=== PATIENT | female | born 1945 | race Caucasian/White ===

== ENCOUNTER → 2017-09-02 12:31 | Outpatient (CLI) | payer MEDICARE, OTHER, SELFPAY ==
--- NOTE | 2017-09-02 12:33 | BD_ITS ---
STUDY: DUAL ENERGY X-RAY ABSORPTIOMETRY / DXA REASON FOR EXAM: Female, 71 years old. The patient is postmenopausal. Loss of height. TECHNIQUE: Bone Mineral Density (BMD) measurements of lumbar spine and bilateral hips were obtained. COMPARISON: None. FINDINGS: Lumbar Spine (L1-L4): g/cm2 (0.967) / T-score (-1.8) / Z-score (-0.1) Findings are suggestive of osteopenia with a moderate fracture risk. Left Femur Total: g/cm2 (0.874) / T-score (-1.1) / Z-score (0.4) Left Femoral Neck: g/cm2 (0.782) / T-score (-1.8) / Z-score (-0.1) Right Femur Total: g/cm2 (0.894) / T-score (-0.9) / Z-score (0.6) Right Femoral Neck: g/cm2 (0.804) / T-score (-1.7) / Z-score (0.0) BD/Dexa Bone Density Study IMPRESSION: The patient is considered osteopenic as outlined below according to [place] Organization (WHO) criteria with a moderate fracture risk. Reference Information: The T-score is the number of standard deviations above or below the standard which is normal for young adults at their peak bone mineral density. The World Health Organization (WHO) interprets the T-scores as follows: Above -1 Normal bone density Between -1 and -2.5 Osteopenia Equal to / or below -2.5 Osteoporosis As a practical clinical guideline, osteopenia may be graded as follows: Mild -1 through -1.5 Moderate -1.6 through -2.0 Severe -2.1 through -2.4 The Z-score is the number of standard deviations above or below age-matched controls. A Z-score of less than -1.5 would be considered abnormal. References: 1. NIH Osteoporosis and Related Bone Diseases http://www.osteo.org 2. International Society for Clinical Densitometry http://www.iscd.org 3. National Osteoporosis Foundation http://www.nof.org Electronically Signed: Lizandro Coburn MD at 8:11 EDT Tel [phone], Service support ,
--- NOTE | 2017-09-02 12:36 | BI_ITS ---
MAMMOGRAPHY - BILATERAL SCREENING REASON FOR EXAM: Female, 71 years old. Routine annual screening examination. PERTINENT HISTORY: Non-contributory. TECHNIQUE: Digital bilateral breast napoleon (3D mammographic acquisition) in the CC and MLO projections. 2-D mediolateral oblique (MLO) and craniocaudad (CC) views of both breasts were obtained. CAD: Full Field Digital Mammography with Computer Added Detection was performed. COMPARISON: Comparison is made with prior outside examination dated January 06, 2013. FINDINGS: Breast Composition: There are scattered areas of fibroglandular density. There are no dominant masses or suspicious calcifications. Stable small bilateral benign-appearing axillary lymph nodes. No other significant abnormalities are identified. There has been no significant change since the prior study. BI/SCREENING MAMM (CAD), BILAT IMPRESSION: Stable bilateral screening mammogram. Yearly follow-up mammogram recommended. (A) ASSESSMENT CATEGORY: BIRADS Category 2: Benign. A letter regarding these results will be sent to the patient by the facility within 30 days. Approximately 10% of breast cancers are not detected by mammography. A normal mammogram should not delay biopsy of a clinically suspicious abnormality. [id number] Electronically Signed: Lizandro Coburn MD at 15:51 EDT Tel [phone], Service support ,
== END ==
PROVIDERS: Family Provider Nurse Practitioner; PCP Nurse Practitioner; Visit Provider Nurse Practitioner
DX: Z12.31 Encounter for screening mammogram for malignant neoplasm of breast (principal); Z78.0 Asymptomatic menopausal state
CPT/HCPCS: 77063; 77067; 77080

== ENCOUNTER → 2017-12-13 09:03 | Outpatient (CLI) | payer MEDICARE, OTHER, SELFPAY ==
[2017-12-13 11:00] LABS: Absolute Lymphocyte Count 2.36 X10^3/ul (0.83-4.51); Absolute Neutrophil Count 5.4 X10^3/uL (2.0-7.7); Basophil# 0.03 X10^3/uL; Basophil% 0.4 % (0-1); Eosinophils% 2.3 % (0-5); Hematocrit 42.5 % (37-47); Hemoglobin 13.3 g/dl (12.0-15.0); Lymphocyte # 2.36 X10^3/ul (4.0); Lymphocyte % 27.6 % (19-41); Mean Corp Hgb Conc 31.3 g/gl (32-36); Mean Corpuscular Hgb 30.4 pg (27.0-32.0); Mean Corpuscular Volume 97.3 fL (81-99); Mean Platelet Vol. 10.9 fl (6.2-12.0); Monocyte# 0.55 X10^3/uL; Monocyte% 6.4 % (0-10); Neutrophil # 5.39 X10^3/uL (2.7-7.7); Neutrophil % 63.2 % (47-70); Platelet Count 231 K/mm3 (150-450); RBC Distribution Width CV 14.2 % (11.6-14.6); Red Blood Count 4.37 M/mm3 (4.2-5.4); White Blood Count 8.5 K/mm3 (4.4-11.0)
[2017-12-13 11:04] LABS: Color, Urine Yellow (Yellow); Glucose, Dipstick Normal (Normal); Ketone-Dipstick Negative (Negative); Leukocyte Esterase-Dipstick 500 /ul (Negative); Nitrite-Dipstick Negative (Negative); Occult Blood-Urine Negative /ul (Negative); Protein-Dipstick Negative (Negative); Specific Gravity, Urine 1.015 (1.002-1.030); Urine Bilirubin Dipstick Negative (Negative); Urine Clarity Sl. Cloudy (Clear); Urine Urobilinogen Normal (Normal); Urine pH 6.5 (5.0 - 8.0)
[2017-12-13 11:07] LABS: POSITIVE COUNT NO; POSITIVE DIFFERENTIAL NO; POSITIVE MORPHOLOGY NO
[2017-12-13 11:12] LABS: Microalbumin,Random Urine 10.1 mg/L (NO RANGE EST.)
[2017-12-13 11:32] LABS: ALB/GLOB Ratio 0.9 RATIO (0.9-2.4); AST(SGOT) 22 U/L (15-37); Alanine Aminotransfer ALT/SGPT 22 U/L (13-56); Albumin, Serum 3.4 g/dL (3.2-5.0); Alkaline Phosphatase 89 U/L (45-117); Anion Gap 10 (5-15); BUN 16 mg/dL (7-18); BUN/Creat Ratio 20.2 RATIO (10-20); Calcium,Total 8.7 mg/dL (8.5-10.1); Chloride 106 mmol/L (98-107); Cholesterol 180 mg/dL (200); Creatinine, Serum 0.79 mg/dL (0.55-1.02); EST Glomerular Filtration Rate 76 mL/min (>60); Est Glom Filt Rate - Afr Amer 92 mL/min (>60); Globulin 3.6 g/dL (2.2-4.2); Glucose 98 mg/dL (74-106); High Density Lipoprotein 49 mg/dL; Potassium 4.1 mmol/L (3.5-5.1); Sodium Level 144 mmol/L (136-145); Thyroid Stim Hormone (TSH) 2.17 uIU/mL (0.358-3.74); Triglycerides 205 mg/dL; Very Low Density Lipoprotein 41 mg/dL (5-40)
[2017-12-15 09:26] LABS: Vitamin B12 207 pg/mL (211-911)
== END ==
PROVIDERS: Family Provider Nurse Practitioner; PCP Nurse Practitioner; Visit Provider Nurse Practitioner
DX: E03.9 Hypothyroidism, unspecified (principal); R73.09 Other abnormal glucose
CPT/HCPCS: 36415; 80053; 80061; 81002; 82043; 82570; 82607; 82746; 84443; 85025

== ENCOUNTER → 2018-09-22 10:17 | Outpatient (CLI) | payer MEDICARE, OTHER, SELFPAY ==
--- NOTE | 2018-09-22 10:19 | BI_ITS ---
MAMMOGRAPHY - BILATERAL SCREENING REASON FOR EXAM: Female, 72 years old. Routine annual screening examination. PERTINENT HISTORY: Non-contributory. TECHNIQUE: Digital bilateral breast maryanne (3D mammographic acquisition) in the CC and MLO projections. 2-D mediolateral oblique (MLO) and craniocaudad (CC) views of both breasts were obtained. CAD: Full Field Digital Mammography with Computer Added Detection was performed. COMPARISON: Comparison is made with prior study dated September 02, 2017. FINDINGS: Breast Composition: There are scattered areas of fibroglandular density. There are no dominant masses or suspicious calcifications. Stable benign-appearing fat-containing axillary lymph nodes bilaterally. No other significant abnormalities are identified. There has been no significant change since the prior study. BI/SCREEN MAMM (CAD) W/MARYANNE BILAT IMPRESSION: Stable bilateral screening mammogram. Yearly follow-up mammogram recommended. (A) ASSESSMENT CATEGORY: BIRADS Category 2: Benign. A letter regarding these results will be sent to the patient by the facility within 30 days. Approximately 10% of breast cancers are not detected by mammography. A normal mammogram should not delay biopsy of a clinically suspicious abnormality. [id number] Electronically Signed: Lizandro Coburn, at 13:31 EDT , Service support ,
== END ==
PROVIDERS: Family Provider Nurse Practitioner; PCP Nurse Practitioner; Referring Provider Nurse Practitioner; Visit Provider Nurse Practitioner
DX: Z12.31 Encounter for screening mammogram for malignant neoplasm of breast (principal)
CPT/HCPCS: 77063; 77067

== ENCOUNTER → 2021-01-30 13:13 | Outpatient (CLI) | payer MEDICARE, OTHER, SELFPAY ==
--- NOTE | 2021-01-30 13:16 | BI_ITS ---
MAMMOGRAPHY - BILATERAL SCREENING REASON FOR EXAM: Female, 75 years old. Routine annual screening examination. PERTINENT HISTORY: Non-contributory. TECHNIQUE: Digital bilateral breast maryanne (3D mammographic acquisition) in the CC and MLO projections. 2-D mediolateral oblique (MLO) and craniocaudad (CC) views of both breasts were obtained. CAD: Full Field Digital Mammography with Computer Added Detection was performed. COMPARISON: Comparison is made with prior study dated 09/22/2018 and 09/02/2017. FINDINGS: Breast Composition: There are scattered areas of fibroglandular density. There are no dominant masses or suspicious calcifications. No other significant abnormalities are identified. There has been no significant change since the prior study. BI/SCRN MAMM (CAD)W/MARYANNE BILAT IMPRESSION: Stable bilateral screening mammogram. Yearly follow-up mammogram recommended. (A) ASSESSMENT CATEGORY: BIRADS Category 1: Negative. A letter regarding these results will be sent to the patient by the facility within 30 days. Approximately 10% of breast cancers are not detected by mammography. A normal mammogram should not delay biopsy of a clinically suspicious abnormality. [id number] Electronically Signed: Lizandro Coburn MD at 14:45 EDT , Service support ,
--- NOTE | 2021-01-30 13:36 | BD_ITS ---
STUDY: DUAL ENERGY X-RAY ABSORPTIOMETRY / DXA REASON FOR EXAM: Female, 75 years old. 627.8Menopausal postmenopausalBONE DENSITY REASON FOR EXAM TECHNIQUE: Bone Mineral Density (BMD) measurements of lumbar spine and bilateral hips were obtained. COMPARISON: Comparison is made with prior study dated 09/02/2017. FINDINGS: Lumbar Spine (L1-L4): g/cm2 (0.769) / T-score (-2.4) / Z-score (-0.1) Findings are suggestive of osteopenia with a high fracture risk. Left Femur Total: g/cm2 (0.788) / T-score (-1.3) / Z-score (0.5) Left Femoral Neck: g/cm2 (0.600) / T-score (-2.2) / Z-score (-0.2) Right Femur Total: g/cm2 (0.780) / T-score (-1.3) / Z-score (0.4) Right Femoral Neck: g/cm2 (0.602) / T-score (-2.2) / Z-score (-0.2) The T-Scores on the most recent prior examination were: Lumbar Spine (L1-L4): There has been worsening of bone density since the previous examination. Left Femur Total: which represents a worsening of 2.8%. Right Femur Total: which represents a worsening of 6.2%. BD/Dexa Bone Density Study IMPRESSION: The patient is considered osteopenic as outlined below according to World [place] Organization (WHO) criteria with a high fracture risk. There has been worsening of bone density since the previous examination. Reference Information: The T-score is the number of standard deviations above or below the standard which is normal for young adults at their peak bone mineral density. The World Health Organization (WHO) interprets the T-scores as follows: Above -1 Normal bone density Between -1 and -2.5 Osteopenia Equal to / or below -2.5 Osteoporosis As a practical clinical guideline, osteopenia may be graded as follows: Mild -1 through -1.5 Moderate -1.6 through -2.0 Severe -2.1 through -2.4 The Z-score is the number of standard deviations above or below age-matched controls. A Z-score of less than -1.5 would be considered abnormal. References: 1. NIH Osteoporosis and Related Bone Diseases www osteo.org 2. International Society for Clinical Densitometry www iscd.org 3. National Osteoporosis Foundation www nof.org Electronically Signed: Lizandro Coburn MD at 9:25 EDT , Service support ,
== END ==
PROVIDERS: PCP Nurse Practitioner; Referring Provider Nurse Practitioner; Visit Provider Nurse Practitioner
DX: Z12.31 Encounter for screening mammogram for malignant neoplasm of breast (principal); Z78.0 Asymptomatic menopausal state; M85.80 Other specified disorders of bone density and structure, unspecified site
CPT/HCPCS: 77063; 77067; 77080

== ENCOUNTER 2022-12-27 11:11 | Emergency (ER) | payer MEDICARE, OTHER, SELFPAY ==
[2022-12-27 11:12] VITALS: BP 175/90; PULSE 89; RESP 18; TEMP 35.3; O2SAT 99
--- NOTE | 2022-12-27 11:19 | NURSING ---
NO OLD EKGS
[2022-12-27 11:20] VITALS: BMI 39.4
[2022-12-27 11:21] VITALS: PULSE 94; RESP 19
[2022-12-27 11:37] VITALS: BP 153/79; PULSE 63; RESP 19
--- NOTE | 2022-12-27 12:03 | ED.VIS.CHEST ---
HPI History of Present Illness Chief Complaint: Chest Pain Informant: patient Onset/Context/Timing Onset: Days Activity at onset: gradual Timing: Intermittent and Lasts (Approximately 30 minutes) Quality: Positive for - (Fluttering, fullness) Location: Left Parasternal and Left Chest Worsened By: Nothing Relieved By: Nothing Associated Symptoms: Positive for Diaphoresis, Lightheadedness and Palpitations; Negative for Nausea, Vomiting, Dyspnea, Cough, Fever or Acid Reflux Narrative Narrative: Patient presents with chest pain that has been getting worse over the past several days. Patient states that it has been waxing and waning. Patient states it feels like a fluttering and a fullness in her chest. Patient states that it last for approximately 30 minutes when it comes on. Patient states it is over the left chest and left parasternal area. Patient states nothing makes it better nothing makes it worse. Patient states she did break out into a sweat with the pain. Patient also admits to some lightheadedness and palpitations. Patient denies any nausea or vomiting. Patient denies any cough or shortness of breath. CVD Risk Factors: Positive for Hypertension and Diabetes; Negative for Hypercholesterolemia, Family History 1' </=55 or Smoking PE Risk Factors: Positive for Cancer; Negative for Recent Travel/Surgery, Recent Immobilization or Prior DVT or PE [facility] Medical History (Updated 12/27/22 @ 13:[address] Swapnil Silver, ) Diabetes GERD (gastroesophageal reflux disease) Hypercholesteremia Melanoma Pacemaker Sleep apnea in adult Home Medications furosemide 20 mg tablet 20 mg PO DAILY PRN PT UNSURE 12/27/22 [History Last Taken Unknown] levothyroxine 50 mcg tablet 50 mcg PO DAILY 12/27/22 [History Last Taken Unknown] metformin 500 mg tablet 1,000 mg PO DAILY 12/27/22 [History Last Taken Unknown] omeprazole 40 mg capsule,delayed release 40 mg PO DAILY 12/27/22 [History Last Taken Unknown] potassium chloride 10 mEq tablet,extended release 10 meq PO DAILY PRN FUROSEMIDE 12/27/22 [History Last Taken Unknown] rosuvastatin 5 mg tablet 5 mg PO DAILY 12/27/22 [History Last Taken Unknown] sacubitril 49 mg-valsartan 51 mg tablet (Entresto) 2 tab PO DAILY 12/27/22 [History Last Taken Unknown] Allergy/AdvReac Type Severity Reaction Status Date / Time broccperlita PreciadoReac Diarrhea Verified 12/27/22 11:19 Surgical History (Updated 12/27/22 @ 12:[address] Swapnil Silver DO) Hx of cholecystectomy Hx of hysterectomy Hx of melanoma excision Social History Smoking Status: Never smoker ROS ROS ED Constitutional Constitutional ED: Reports sweats; Denies chills or fever(s) Eyes Eyes: Denies blurry vision or change in vision ENT ENT ED: Denies rhinorrhea or sore throat Cardiovascular Cardiovascular: Reports chest pain and palpitations Respiratory/Chest Respiratory/Chest: Denies cough or dyspnea Gastrointestinal Gastrointestinal: Denies abdominal pain, nausea or vomiting Genitourinary Genitourinary ED: Denies dysuria or hematuria Musculoskeletal Musculoskeletal: Reports back pain; Denies neck pain Integumentary Denies abscess or rash Neurologic Neurologic: Denies headache(s) or weakness Allergic/Immunologic Allergic/Immunologic ED: Denies mouth swelling or urticaria EXAM Physical Exam Const Vital Signs: 12/27/22 11:12 12/27/22 11:21 12/27/22 11:21 Temperature 95.6 F L Temperature Source Temporal Pulse Rate 89 94 Respiratory Rate 18 19 H Respiratory Effort Normal Non-Labored Blood Pressure 175/90 H Blood Pressure Mean 118 Pulse Ox 99 Oxygen Delivery Method Room Air Room Air 12/27/22 11:37 12/27/22 12:14 12/27/22 13:01 Temperature Temperature Source Pulse Rate 63 63 Respiratory Rate 19 H 17 Respiratory Effort Blood Pressure 153/79 H 138/60 H Blood Pressure Mean 103 86 Pulse Ox 97 94 Oxygen Delivery Method Room Air Room Air Room Air Positive well nourished, well developed and obese General Appearance ED: well developed and NAD Nutritional Appearance: obese HEENT normocephalic and atraumatic Eyes PERRL and EOMs intact bilaterally Neck supple and no JVD Chest Wall palpation of chest normal Resp normal respiratory effort and clear to auscultation bilaterally Effort and Inspection: Negative for respiratory distress Cardio regular rate and regular rhythm GI normal to inspection, nondistended, normoactive bowel sounds, soft to palpation, non-tender and non-distended Extremity normal to inspection General Extremety ED: Negative for edema or tenderness General Extremity: Negative for edema Neuro oriented x3, CN's II-XII intact bilaterally and no sensory deficits noted Sensorium / Orientation: awake and alert Motor Exam: strength 5/5 throughout Psych mental status grossly normal Heart Score History: Slightly/Non-Suspicious ECG: Normal Age: >/= 65 years Risk Factors: 1 or 2 Risk Factors Score: 3 MDM MDM MDM Narrative Medical decision making narrative: Differential diagnosis includes cardiac dysrhythmia, cardiac ischemia, pneumonia, pneumothorax, GERD, musculoskeletal pain, and anxiety. EKG will be obtained to assess for cardiac dysrhythmia and cardiac ischemia. Chest x-ray will be obtained to assess for pneumonia and pneumothorax. Basic metabolic profile will be obtained to assess for electrolyte abnormality and renal function. CBC will be obtained to assess for leukocytosis and anemia. High-sensitivity troponin will be obtained to assess for cardiac ischemia. Patient has a Wells score of 0. I do not feel is from a pulmonary embolism. Lab Data Attestation: I reviewed the patient's lab results. Lab results narrative: Seen she was reviewed and was within normal limits. Basic metabolic profile was reviewed and was within normal limits. High-sensitivity troponin was reviewed and was normal. Labs: Laboratory Results - last 24 hr 12/27/22 12:43 WBC 7.1 RBC 4.10 L Hgb 12.8 Hct 39.3 MCV 95.9 MCH 31.2 MCHC 32.6 RDW Std Deviation 48.6 H RDW Coeff of Carito 13.7 Plt Count 180 MPV 9.9 Immature Gran % (Auto) 0.100 Neut % (Auto) 70.3 H Lymph % (Auto) 20.4 [place] % (Auto) 7.3 Eos % (Auto) 1.5 Baso % (Auto) 0.4 Absolute Neuts (auto) 5.0 Absolute Lymphs (auto) 1.45 Nucleated RBC % 0 Sodium 140 Potassium 4.1 Chloride 107 Carbon Dioxide 28.0 Anion Gap 5 BUN 16 Creatinine 0.95 Estim Creat Clear Calc 38.02 Est GFR (MDRD) Af Amer 73 Est GFR (MDRD) Non-Af 61 BUN/Creatinine Ratio 16.8 Glucose 124 H Calcium 9.0 Troponin I High Sens 8 Radiography Chest X-Ray - ED: 2 View, Read by ED Physician, Read by Radiologist and No Acute Disease Diagnostic Testing: Clinical Impression(s) from Imaging Studies Chest X-Ray 12/27/22 12:20 IMPRESSION: Prominence of the central pulmonary arteries. The lungs are clear. Electronically Signed: Lizandro Coburn MD at 12:46 EDT , PA and lateral chest x-ray was obtained. There are 2 views. On my independent interpretation, lung gomes are clear. There are prominent pulmonary arteries. There is normal cardiac silhouette. Bony thorax is normal. There is no acute process noted. Radiologist also interpreted the x-ray and agrees. EKG Initial EKG: Attestation: I personally reviewed and interpreted this EKG as follows: Interpretation: No Acute Injury Pattern and Paced Comments: EKG was obtained. On my independent interpretation, it showed a AV dual paced rhythm with a rate of 66. [place] interval, QRS interval, and QTc intervals were all normal. [place] was normal. There are no acute ST or T wave changes. Treatment and Re-Evaluation :: Patient was given aspirin here. Patient is feeling better on reevaluation. Patient was advised of her findings. Patient was given a referral for primary care physician in this area. Patient was instructed to follow-up in 5 to 7 days for further evaluation. Patient understood and was agreeable with the plan. All questions were answered. Discharge Plan Triage Chief Complaint: Chest Pain ED Provider: Swapnil Silver Dx/Rx/DC Orders Clinical Impression: Chest pain, Hypertension Instructions: ED Chest Pain, Uncertain Cause Prescriptions: No Action omeprazole 40 mg capsule,delayed release(DR/EC) 40 mg PO DAILY metformin 500 mg tablet 1,000 mg PO DAILY rosuvastatin 5 mg tablet 5 mg PO DAILY levothyroxine 50 mcg tablet 50 mcg PO DAILY Entresto 49-51 mg tablet 2 tab PO DAILY furosemide 20 mg tablet 20 mg PO DAILY PRN (Reason: PT UNSURE) potassium chloride 10 mEq tablet extended release 10 meq PO DAILY PRN (Reason: FUROSEMIDE) Primary Care Provider: Care Physician,No Primary Referrals: Slim Kaur MD [Med Staff - Active Staff] - 5-7 Days Disposition Disposition: Home, Self Care
[2022-12-27 12:14] VITALS: O2SAT 97
[2022-12-27] MEDS: Aspirin 81 MG TAB.CHEW 324 MG PO (12:17)
--- NOTE | 2022-12-27 12:20 | RAD_ITS ---
STUDY: X-RAY CHEST REASON FOR EXAM: Female, 77 years old. Chest pain TECHNIQUE: PA and lateral views of the chest. COMPARISON: None. FINDINGS: EKG electrodes are seen. Azygos lobe is seen. This is a normal variant. There is no demonstrated pleural abnormality. Normal size heart. A left-sided dual-chamber pacemaker is seen. Normal mediastinum and betsy. There is prominence of the pulmonary hilar arteries without peripheral pulmonary vascular congestion, suggesting pulmonary hypertension. Normal visualized aortic arch and descending thoracic aorta. There is demineralization of the osseous structures. Normal visualized ribs, clavicles, and shoulders. Surgical clips are seen in the right upper quadrant. RAD/Chest PA and Lateral IMPRESSION: Prominence of the central pulmonary arteries. The lungs are clear. Electronically Signed: Lizandro Coburn MD at 12:46 EDT ,
[2022-12-27 12:51] LABS: Absolute Lymphocyte Count 1.45 X10^3/uL (0.83-4.51); Basophil# 0.03 X10^3/uL; Basophil% 0.4 % (0-1); Eosinophil# 0.11 X10^3/uL; Eosinophils% 1.5 % (0-5); Hematocrit 39.3 % (37-47); Hemoglobin 12.8 g/dL (12.0-15.0); Lymphocyte # 1.45 X10^3/ul (0.83-4.51); Lymphocyte % 20.4 % (19-41); Mean Corp Hgb Conc 32.6 g/dL (32-36); Mean Corpuscular Hgb 31.2 pg (27.0-32.0); Mean Corpuscular Volume 95.9 fL (81-99); Mean Platelet Vol. 9.9 fl (6.2-12.0); Monocyte# 0.52 X10^3/uL; Monocyte% 7.3 % (0-10); NRBC Flagged by Analyzer 0 % (0-5); Neutrophil # 4.99 X10^3/uL (2.7-7.7); Neutrophil % 70.3 % (47-70); Platelet Count 180 K/mm3 (150-450); RBC Distribution Width CV 13.7 % (11.6-14.6); RBC Distribution Width SD 48.6 fl (35.1-43.9); White Blood Count 7.1 K/mm3 (4.4-11.0)
--- NOTE | 2022-12-27 12:56 | EKG12_ITS ---
Test Reason : CP Blood Pressure : / mmHG Vent. Rate : 066 BPM Atrial Rate : 066 BPM P-R Int : 178 ms QRS Dur : 132 ms QT Int : 456 ms P-R-T Axes : 030 006 016 degrees QTc Int : 478 ms AV dual-paced rhythm Abnormal ECG Confirmed by CIELO MENDOZA, HALI ([id number]), general expeditor PAYAL CALIX ([id number]) on 01/02/2023 2:15:28 PM Referred By: HUBERT/ANGELO Confirmed By:HALI BUCK MD
[2022-12-27 13:01] VITALS: BP 138/60; PULSE 63; RESP 17; O2SAT 94
[2022-12-27 13:18] LABS: Anion Gap 5 (5-15); BUN 16 mg/dL (7-18); BUN/Creat Ratio 16.8 RATIO (10-20); Chloride 107 mmol/L (98-107); Creatinine, Serum 0.95 mg/dL (0.55-1.02); EST Glomerular Filtration Rate 61 mL/min (>60); Est Glom Filt Rate - Afr Amer 73 mL/min (>60); Estimated Creatinine Clearance 38.02 ml/min; Glucose 124 mg/dL (74-106); Potassium 4.1 mmol/L (3.5-5.1); Sodium Level 140 mmol/L (136-145); Troponin-I HS 8 pg/mL (3.0-54.0)
[2022-12-27 14:15] VITALS: BP 136/108; PULSE 67; RESP 13; O2SAT 95
== END 2022-12-27 14:12 | disposition home or self-care (01) ==
PROVIDERS: Emergency Provider Emergency Medicine; Visit Provider Emergency Medicine
DX: R07.9 Chest pain, unspecified (principal); E11.9 Type 2 diabetes mellitus without complications; I10 Essential (primary) hypertension; E78.00 Pure hypercholesterolemia, unspecified; R42 Dizziness and giddiness; R00.2 Palpitations; E66.9 Obesity, unspecified; Z79.84 Long term (current) use of oral hypoglycemic drugs; Z79.890 Hormone replacement therapy; Z79.899 Other long term (current) drug therapy; Z95.0 Presence of cardiac pacemaker
CPT/HCPCS: 71046; 80048; 84484; 85025; 93005; 99285; A4216